=== PATIENT | female | born 1950 | race Caucasian/White ===

== ENCOUNTER → 2017-08-21 | Outpatient (CLI) | payer BC ==
[~2017-08-21] MED LIST: EFF50 PO; FRRG27 PO; LISI40TA PO; MEDLIST; SIMV20TA2 PO; [UNRECOGNIZED DRUG - OTHER]
--- NOTE | 2017-08-21 15:31 | MAMMOGRAPHY REPORT ---
UNILATERAL RIGHT DIGITAL DIAGNOSTIC MAMMOGRAM: 08/21/2017 CLINICAL HISTORY: Callback from screening mammogram for right breast calcifications. TECHNIQUE: Spot magnification right cc and ML views were obtained. COMPARISON: Comparison is made to exams dated: 08/12/2017 mammogram, 08/09/2016 mammogram, 07/20/2015 mammogram, 07/19/2014 mammogram, 07/14/2013 mammogram, and 07/13/2012 mammogram - [facility]. BREAST COMPOSITION: There are scattered areas of fibroglandular density in the right breast. FINDINGS: Spot magnification views of the right breast demonstrate 3-4 adjacent punctate benign appe aring calcifications in the right lateral breast on the cc view which are not grouped on the ML view. The calcifications appear similar to the 2016 exam and are considered benign given the stability an d benign morphology. No suspicious cluster of microcalcifications is seen on the additional views. IMPRESSION: ACR BI-RADS CATEGORY 2: BENIGN Three to four adjacent punctate benign appearing calcifications in the right lateral breast appear si milar to prior 2016 exam and are considered benign given the morphology and stability. There is no m ammographic evidence of malignancy. A 1 year screening mammogram is recommended. The patient has bee n verbally notified of the results. Approximately 10% of breast cancers are not detected with mammography. A negative mammographic report should not delay biopsy if a clinically suggestive mass is present. Mellissa Boss M.D. /:08/21/2017 10:01:12 [employer]: Akanksha SIN(Dominic)(M), [facility] letter sent: Normal 1/2 BI-RADS Code: ACR BI-RADS Category 2: Benign
== END | disposition home or self-care (01) ==
LOC: C.MAMM 09:35
PROVIDERS: ATTEND Family Medicine
DX: R92.1 Mammographic calcification found on diagnostic imaging of breast (principal)

== ENCOUNTER → 2017-10-28 | Outpatient (CLI) | payer BC | END | disposition home or self-care (01) | LOC: C.MAMM 12:34 | PROVIDERS: ATTEND Nurse Practitioner | DX: M81.0 Age-related osteoporosis without current pathological fracture (principal) ==

== ENCOUNTER 2023-10-13 12:49 | Inpatient (IN) ==
[2023-10-13] MEDS ORDERED: ONDANSETRON INJ 2 MG/ML 2 ML VIAL IV STA (13:40)
[2023-10-13] MEDS ORDERED: KETOROLAC TROMETHAMINE 15 MG/ML VIAL IV STA (13:40)
[2023-10-13] MEDS ORDERED: SODIUM CHLORIDE 0.9% 1,000 ML IV STA (13:40)
--- NOTE | 2023-10-13 13:40 | ED Triage Note ---
Date of Service October 13, 2023 Provider in Triage Author: Barbara Alfonso History of Present Illness This patient was briefly evaluated while in triage. An abbreviated physical exam was performed. This patient is a 73-year-old Female who presents to the ED for evaluation of right flank pain that radiates to the front of her abdomen that started at 6:45 am this morning. The pain is constant, but episodes of more severe pain. She thinks she might have a kidney stone. No previous kidney stones. Denies chest pain or SOB. No nausea, vomiting, or urinary symptoms. Physical Exam GENERAL: Non-toxic and in no acute distress. HEENT: Pupils equal. No obvious scleral icterus. HEART: Regular rate and rhythm. LUNGS: Clear to auscultation. No accessory muscle use. ABDOMEN: Soft, mild right flank and right sided abdominal pain. No CVA tenderness. No guarding or rigidity. NEURO: Alert and oriented. No obvious neurological deficits on quick neuro exam. Initial orders for labs and / or imaging were placed and patient was placed in the waiting area until a bed is available. Please see further documentation for the full ED course.
--- NOTE | 2023-10-13 14:34 | XRay Report ---
SINGLE VIEW CHEST CLINICAL HISTORY: Generalized abdominal pain FINDINGS: A PA chest radiograph is obtained. No prior studies are available for comparison at the rayray e of dictation. A hiatal hernia is noted. The cardiomediastinal silhouette is unremarkable. There is mild elevation of the right hemidiaphragm. The lungs and pleural spaces are clear. No pneumothorax is seen. The skeletal structures are osteopenic. Bony thorax is grossly intact. IMPRESSION: 1. No active disease in the chest. 2. Hiatal hernia. ACT 112: Negative or not required by law. Electronically signed by: Domingo Chin M.D. 10/13/2023 2:33 PM
[2023-10-13 15:38] LABS: Appearance Urine Turbid (Clear); Bacteria Urine Automated 4+ (Negative); Bilirubin Urine Negative (Negative); Blood Urine Trace (Negative); Cast Urine Automated 0 /lpf (0-5); Color Urine Dark Yellow; Glucose Urine UA Negative (Negative); Ketones Urine 2+ (Negative); Leukocyte Esterase Urine 3+ (Negative); Nitrite Urine Positive (Negative); Protein Urine 1+ (Negative); RBC Urine Automated 0-4 /hpf (0-4); Specific Gravity Urine 1.022 (1.000-1.030); Urobilinogen Urine Negative (Negative); WBC Urine Automated >30 /hpf (0-5)
[2023-10-13 15:48] LABS: Hematocrit (blood only) 42.6 % (37.0-47.0); Hemoglobin 14.9 g/dl (12.0-16.0); Mean Corpuscular Hemoglobin 31.4 pg (25.0-34.0); Mean Corpuscular Volume 89.7 fL (80.0-100.0); Mean Platelet Volume 10.4 fL (9.4-12.4); Platelet Count 267 K/uL (130-400); RDW Standard Deviation 42.5 fL (36.4-46.3); Red Blood Count 4.75 M/uL (4.20-5.40); White Blood Count 12.32 K/ul (4.8-10.8)
[2023-10-13 15:54] LABS: Albumin Globulin Ratio 1.5 (0.9-2); Albumin Level 4.6 gm/dl (3.4-5.0); BUN Creatinine Ratio 16.1 (10-20); Bilirubin,Total 0.9 mg/dl (0.2-1.0); Calcium 10.4 mg/dl (8.6-10.3); Creatinine Clr Calc Pharmacy 44.1 ml/min; Est GFR (African American) 56.8 ml/min; Globulin 3.1 gm/dl (2.5-4.0); Potassium 3.6 mmol/L (3.5-5.1); Total Protein 7.7 gm/dl (6.0-8.3)
[2023-10-13 16:01] LABS: Troponin I High Sensitivity 35.3 pg/ml (0-14)
--- NOTE | 2023-10-13 16:08 | Emergency Department Note ---
Impression & Plan Emphysematous pyelitis, Obstruction of right ureteropelvic junction due to stone, Hydronephrosis, Lactic acidosis, SIRS (systemic inflammatory response syndrome), Elevated troponin ED Provider Note CHIEF COMPLAINT: Right flank pain HISTORY OF PRESENTING ILLNESS: This 73-year-old female patient presents to the emergency department with her daughter for evaluation of right flank pain radiating around to the right abdomen that started abruptly at 6:45 am this morning. Also having nausea and vomiting, but no diarrhea. She is concerned for a kidney stone, but does not have a history of kidney stones. Denies any fevers. Denies any urinary symptoms. Denies any problems with her bowel movements. She rates her discomfort as 10/10. She denies any chest pain or SOB. No previous history of heart problems. Took Tylenol and ibuprofen at home as well as AZO without improvement of her symptoms. She felt fine yesterday and the symptoms came on abruptly. The patient had 1 glass of water at noon, but had not had anything to eat today. REVIEW OF SYSTEMS: See HPI for pertinent positives and pertinent negatives. ALLERGIES: NKDA MEDICATIONS: Effexor, HCTZ, Statin, Lisinopril, Fish oil, Calcium supplement, MV PAST MEDICAL HISTORY: HTN, high cholesterol, Anxiety PHYSICAL EXAM: VITALS: Vitals are noted on the nurse's note and reviewed by myself. GENERAL: Non toxic, no acute distress, non-diaphoretic. SKIN: Capillary refill <2 sec. EYES: PERRLA. EOMI. Conjunctivae without injection, sclerae without icterus. NOSE: Patent without discharge. MOUTH: Mucous membranes moist. Uvula midline. Airway patent. NECK: Supple without nuchal rigidity. HEART: Regular rate and rhythm without murmurs gallops or rubs. LUNGS: Clear to auscultation bilaterally without wheezes, rales or rhonchi. No retractions or accessory muscle use. ABDOMEN: Positive bowel sounds x 4. Normal tympanic percussion. Soft, tender to palpation in the right flank and around to the right side of the abdomen. No masses or organomegaly. Rogers sign negative. No CVA tenderness. No guarding or rebound tenderness. MUSCULOSKELETAL: No gross musculoskeletal defects. NEURO: Patient was alert and oriented. No focal neurological deficits. DIFFERENTIAL DIAGNOSIS: Differential diagnosis includes hepatitis, pancreatitis, cholecystitis, cholelithiasis, appendicitis, kidney stone, pyelonephritis, UTI, gastritis, gastroenteritis, mesenteric adenitis, obstruction, constipation, hernia, abdominal abscess, perforation, diverticulitis, IBD, ischemic colitis, abdominal aortic aneurysm, , ectopic , ovarian cyst, ovarian torsion, acute salpingitis, or others. ED COURSE AND MEDICAL DECISION MAKING: MONITOR: Continuous cardiac monitor technician: Order was placed for continuous cardiac monitor technician. Patient was placed on the cardiac monitor technician and continuous pulse ox. Patient was noted to be in normal sinus rhythm at an initial rate of 90 bpm per my interpretation. EKG: EKG was interpreted by myself as normal sinus rhythm at 100 bpm with poor R wave progression to suggest possible lead placement versus LVH versus anterior PR without previous EKGs available. This was reviewed by Dr. Ford as well and there are no acute ST or T wave changes at this time. Repeat EKG was interpreted by myself and shows normal sinus rhythm at [address] and T wave changes, but no acute ST or T wave changes and the previous abnormalities are no longer present. The QT interval has lengthened somewhat. MEDICATIONS GIVEN: 2 L normal saline solution bolus. Toradol 10 mg IV, Zofran 4 mg IV, Tylenol 1000 mg IV, Rocephin 2 g IV. INTERPRETATION OF LABS: I interpreted the labs with full lab results as below in the lab section of this note. White blood cell count elevated at 12.32. Hemoglobin normal at 14.9. Platelet count normal at 267. Anion gap elevated at 13. Glucose elevated at 157. CMP otherwise without significant abnormalities. Lipase was normal. High-sensitivity troponin was elevated at 35.3 with repeat high-sensitivity troponin improved to 6.4. Lactate was elevated at 3.3 with repeat lactate improved to 2.4. Urinalysis with 1+ protein, 2+ ketones, trace blood, positive nitrites, 3+ leukocytes, greater than 30 white blood cells, 10- 20 epithelial cells, and 4+ bacteria consistent with infection. Urine culture is pending. Blood cultures are pending. INTERPRETATION OF IMAGING: Imaging studies were interpreted by myself and read by radiology as per the imaging section of this note. Chest x-ray showed a hiatal hernia, but no acute cardiopulmonary etiology. CT scan of the abdomen and pelvis showed a 7 mm obstructing stone within the right ureteral pelvic junction resulting in moderate right hydronephrosis. There is a small amount of gas within the right renal collecting system and proximal right ureter. There is also gas located within the bladder lumen. This could be due to prior instrumentation/catheterization, but underlying infection in the setting of an emphysematous pyelitis/pyelonephritis is a consideration. Right lower lobe pulmonary nodules with the largest measuring 8 mm. CONSULTATIONS: Dr. Vasquez of urology, on-call hospitalist MDM SUMMARY: The patient was seen during a time of extreme volume and extreme acuity. Nursing triage protocols were initiated with IV lock, labs, and/or imaging studies conducted by protocol in the triage area. The patient was initially evaluated in a triage room and then re-examined once they were taken back to an exam room. The patient started with right flank pain suddenly at 6:45 AM this morning. Also having some nausea and an episode of vomiting. Denies any fevers or urinary symptoms. Denies chest pain or shortness of breath. Blood work showed an elevated white blood cell count, elevated anion gap, elevated lactate, and elevated troponin. Urinalysis was consistent with infection with urine culture pending. EKG's x 2 were not consistent with STEMI and repeat high-sensitivity troponin normalized. I suspect the elevated troponin was secondary to ischemic demand from her infection. The patient's CT scan showed a 7 mm obstructing stone within the right ureteral pelvic junction resulting in moderate right hydronephrosis with a small amount of gas within the right renal collecting system, proximal right ureter, and within the bladder lumen. The patient's workup is consistent with an infected stone resulting in sepsis vs SIRS and elevated troponin likely from ischemic demand. The patient was initially given 1 L normal saline solution bolus, Toradol, Zofran, and IV Tylenol with improvement of her pain. Once the patient's lactate level was received and was elevated, she was given a second liter of normal saline solution bolus calculated by ideal body weight. Blood cultures were drawn and are pending. The patient was given Rocephin 2 g IV. I spoke with Dr. Vasquez of urology who recommended the patient be taken to the OR for definitive treatment of the infected stone due to the gas seen on the CT scan and concern for emphysematous pyelitis. The patient's vital signs actually remained relatively stable with some hypertension and mild tachycardia. The patient was afebrile at home and afebrile in the emergency department. The patient was well-appearing on exam and nontoxic in appearance. Please refer to Dr. Vasquez' dictation for further details. I also spoke with the on-call hospitalist who agreed to admit the patient for further management after surgical intervention. Please refer to their dictation for further details. I had a meaningful discussion about this patient with Dr. Ford who agrees with my assessment and the treatment plan. The patient's care was transferred to Dr. Vasquez and the hospitalist in stable condition. DIAGNOSIS: Emphysematous pyelitis SIRS Elevated troponin 7 mm obstructing stone resulting in hydronephrosis Past Med/Surg History Medical History (Updated 10/13/23 @ 23:18 by Barbara Alfonso PA-C) HLD (hyperlipidemia) HTN (hypertension) Social History Smoking Status: Former smoker Tobacco Type: Cigarettes Cigarettes Per Day: 20; Smoking End Date: 40 years ago; Second Hand Exposure: No; Do You Dip or Chew Tobacco: No; Tobacco Cessation Education Requested by Patient: No Hx Alcohol Use: No Hx Substance Use: No Preferred Language: Maltese Communication Ability: Effective Java [id number] Technical Lead Required: No Beliefs That Will Affect Care: None Current Living Situation: Alone Other Information That Helps Us Care for You: No Feels Safe at Home: Yes Safety Concerns: Feels Safe At This Time Assistive Devices: Glasses Allergies Allergies Allergy/AdvReac Type Severity Reaction Status Date / Time No Known Allergies Allergy Unverified 03/12/10 18:55 Home Meds Home Medications Medication Instructions Recorded Confirmed hydrochlorothiazide 12.5 mg capsule 12.5 mg PO DAILY 10/13/23 10/13/23 lisinopril 40 mg tablet 40 mg PO DAILY 10/13/23 10/13/23 rosuvastatin 20 mg tablet 20 mg PO DAILY 10/13/23 10/13/23 venlafaxine 75 mg capsule,extended 75 mg PO DAILY 10/13/23 10/13/23 release 24 hr Results & Data (ED) Vital Signs Vital Signs - 24 hr 10/13/23 13:34 10/13/23 16:55 10/13/23 17:00 Temperature 36 C L Temperature Source Temporal Artery Scan Pulse Rate 88 98 H 102 H Respiratory Rate 18 23 21 Respiratory Effort / Characteristics Non-Labored Respiratory Depth Normal Respiratory Pattern Regular Blood Pressure 145/86 H 151/81 H 165/86 H Blood Pressure Mean 105 104 112 Pulse Oximetry 96 98 98 Oxygen Delivery Method Room Air Room Air Room Air Sepsis Recent Fever Within 48 Hours No Sepsis New/Unexplained Change in Mental Status N/A Sepsis Action Taken by Nursing No Action Required 10/13/23 17:15 Temperature Temperature Source Pulse Rate 108 H Respiratory Rate Respiratory Effort / Characteristics Respiratory Depth Respiratory Pattern Blood Pressure Blood Pressure Mean Pulse Oximetry Oxygen Delivery Method Sepsis Recent Fever Within 48 Hours Sepsis New/Unexplained Change in Mental Status Sepsis Action Taken by Nursing Laboratory Data 10/13/23 13:14 10/13/23 13:14 Lab Results 10/13/23 10/13/23 Range/Units 13:14 16:56 WBC 12.32 H (4.8-10.8) K/ul RBC 4.75 (4.20-5.40) M/uL Hgb 14.9 (12.0-16.0) g/dl Hct 42.6 (37.0-47.0) % MCV 89.7 (80.0-100.0) fL MCH 31.4 (25.0-34.0) pg MCHC 35.0 (32.0-36.0) g/dL RDW Std Deviation 42.5 (36.4-46.3) fL RDW Coeff of Farzaneh 13.0 (11.5-14.5) % Plt Count 267 (130-400) K/uL MPV 10.4 (9.4-12.4) fL Immature Gran % (Auto) 0.7 % Neut % (Auto) 94.1 % Lymph % (Auto) 3.8 % [place]he % (Auto) 1.2 % Eos % (Auto) 0.0 % Baso % (Auto) 0.2 % Neut # (Auto) 11.58 H (1.40-6.50) K/uL Lymph # (Auto) 0.47 L (1.20-3.40) K/uL [place]he # (Auto) 0.15 (0.11-0.59) K/uL Eos # (Auto) 0.00 (0.00-0.50) K/uL Baso # (Auto) 0.03 (0.00-0.20) K/uL Immature Gran # (Auto) 0.09 (0.01-0.20) K/uL Toxic Vacuolation 1+ Sodium 138 (136-145) mmol/L Potassium 3.6 (3.5-5.1) mmol/L Chloride 101 (98-107) mmol/L Carbon Dioxide 24 (21-32) mmol/L Anion Gap 13 H (3-11) BUN 18 (6-23) mg/dl Creatinine 1.12 (0.6-1.2) mg/dl Est Cr Clr Drug Dosing 44.1 ml/min Est GFR ( Amer) 56.8 ml/min Est GFR (Non-Af Amer) 49.0 ml/min BUN/Creatinine Ratio 16.1 (10-20) Glucose 157 H (70-99(Fasting)) mg/dl Lactate 3.3 H* (0.4-2.0) mmol/L Calcium 10.4 H (8.6-10.3) mg/dl Total Bilirubin 0.9 (0.2-1.0) mg/dl AST 35 (13-39) U/L ALT 23 (7-52) U/L Alkaline Phosphatase 60 (34-104) U/L Troponin I High Sens 35.3 H 6.4 D (0-14) pg/ml Total Protein 7.7 (6.0-8.3) gm/dl Albumin 4.6 (3.4-5.0) gm/dl Globulin 3.1 (2.5-4.0) gm/dl Albumin/Globulin Ratio 1.5 (0.9-2) Lipase 25 (11-82) U/L Urine Color Dark Yellow Urine Appearance Turbid A (Clear) Urine pH 7.0 (4.5-7.5) Ur Specific [place] 1.022 (1.000-1.030) Urine Protein 1+ H (Negative) Urine Glucose (UA) Negative (Negative) Urine Ketones 2+ H (Negative) Urine Blood Trace H (Negative) Urine Nitrite Positive A (Negative) Urine Bilirubin Negative (Negative) Urine Urobilinogen Negative (Negative) Ur Leukocyte Esterase 3+ H (Negative) Urine WBC (Auto) >30 H (0-5) /hpf Urine RBC (Auto) 0-4 (0-4) /hpf U Hyaline Cast (Auto) 0 (0-5) /lpf U Epithel Cells (Auto) 10-20 H (0-5) /lpf Urine Bacteria (Auto) 4+ H (Negative) Administered Medications Parenteral Electrolytes (Plasma-Lyte A Ph 7.4) 1,000 mls @ 125 mls/hr IV .Q8H GIGI Stop: 11/12/23 20:59 Last Admin: 10/13/23 21:42 Dose: 125 mls/hr Documented By: CHARBEL Discontinued Medications Diatrizoate Meglumine (Diatrizoate Meglumine 30% 100ml Vial) 100 ml INSTIL ONCE ONE Stop: 10/13/23 18:01 Last Admin: 10/13/23 18:50 Dose: 13 ml Documented By: [id number] Sodium Chloride (Nss) 1,000 mls @ 999 mls/hr IV .Q1H1M STA Stop: 10/13/23 14:40 Last Infusion: 10/13/23 16:51 Dose: Infused Documented By: Admin: 10/13/23 15:10 Dose: 999 mls/hr Documented By: ISRA Acetaminophen (Ofirmev) 1,000 mg in 100 mls @ 400 mls/hr IV NOW STA Stop: 10/13/23 16:35 Last Infusion: 10/13/23 17:15 Dose: Infused Documented By: Admin: 10/13/23 17:00 Dose: 400 mls/hr Documented By: MUNIRA Ceftriaxone Sodium (Rocephin) 2,000 mg in 50 mls @ 100 mls/hr IV NOW STA Stop: 10/13/23 16:51 Last Infusion: 10/13/23 17:35 Dose: Infused Documented By: Admin: 10/13/23 17:00 Dose: 100 mls/hr Documented By: MUNIRA Sodium Chloride (Nss) 1,000 mls @ 999 mls/hr IV .Q1H1M ONE Stop: 10/13/23 18:34 Last Admin: 10/13/23 17:40 Dose: 999 mls/hr Documented By: MUNIRA Parenteral Electrolytes (Plasma-Lyte A Ph 7.4) 361 mls @ 999 mls/hr IV .Q22M ONE Stop: 10/13/23 21:06 Last Infusion: 10/13/23 21:42 Dose: Infused Documented By: Admin: 10/13/23 21:18 Dose: 999 mls/hr Documented By: CHARBEL Ketorolac Tromethamine (Ketorolac Tromethamine 15 Mg/Ml Vial) 10 mg IV NOW STA Stop: 10/13/23 13:41 Last Admin: 10/13/23 15:10 Dose: 10 mg Documented By: ISRA Ondansetron HCl (Ondansetron Inj 2 Mg/Ml 2 Ml Vial) 4 mg IV NOW STA Stop: 10/13/23 13:41 Last Admin: 10/13/23 15:10 Dose: 4 mg Documented By: ISRA Imaging Data Radiologist's Impression: Retrograde Pyelogram 10/13/23 00:00 INTRAOPERATIVE RADIOGRAPHS CLINICAL HISTORY: Right ureteral stent placement. Fluoro time: 12 seconds Ka,r: 3.67 mGy FINDINGS: 3 spot fluoroscopic views of the right abdomen are correlated with abdominal CT performed the same day 10/13/2023. The initial image shows contrast in the mildly dilated right renal collecting system. There are air bubbles in the right renal pelvis. The final 2 images show the proximal and distal ends of a right ureteral stent in appropriate position. IMPRESSION: Intraoperative images from a right ureteral stent placement procedure as above. Electronically signed by: Domingo Chin M.D. 10/13/2023 7:22 PM Abdomen/Pelvis CT 10/13/23 13:[address] WITHOUT CONTRAST CT DOSE: 1149.21 mGy.cm HISTORY: Right flank pain TECHNIQUE: Multiaxial CT images of the abdomen and pelvis were performed without contrast. A dose lowering technique was utilized adhering to the principles of ALARA. COMPARISON STUDY: None. FINDINGS: There is a 7 mm subpleural nodule along the right minor fissure on image 2. There is a 6 mm nodule within the base the right lower lobe on image 63. Mild interstitial thickening at the lung bases. There is a 4 mm right lower lobe nodule on image 39. There is an 8 mm nodule within the right lower lobe on image 7. No pneumoperitoneum. No pneumatosis. Moderate osteoarthritis within the right hip. Degenerative changes within the lumbar spine. There is a moderate hiatus hernia. The unenhanced liver, gallbladder, pancreas, spleen, adrenal glands, and left kidney are unremarkable. There is a 7 mm obstructing stone within the right ureteropelvic junction resulting in moderate right hydronephrosis. There is moderate right perinephric edema. There is a small amount of gas within the right renal collecting system and proximal ureter. There is also gas located within the bladder lumen. No bladder wall thickening. The uterus and bilateral adnexa are unremarkable. Normal caliber abdominal aorta. No retroperitoneal or pelvic lymphadenopathy. No pelvic free fluid. Suboptimal evaluation for bowel pathology due to the lack of intravenous and oral contrast. However, there is no definite bowel wall thickening or obstruction. Colonic diverticulosis. No evidence for acute diverticulitis. The appendix is not identified and reportedly to be surgically absent. IMPRESSION: 1. A 7 mm obstructing stone within the right ureteral pelvic junction resulting in moderate right hydronephrosis. 2. Small amount of gas within the right renal collecting system and proximal right ureter. This also gas located within the bladder lumen. This could be due to prior instrumentation/catheterization. Underlying infection in the setting of an emphysematous pyelitis/pyelonephritis is considered less likely but not entirely excluded. Recommend correlation with urinalysis. 3. Right lower lobe pulmonary nodules as described above with the largest measuring 8 mm. Please refer to below summary of Fleischner criteria recommendations for follow- up of incidental CT nodules (Quan Pinto, Guidelines for management of small pulmonary nodules detected on CT scans: A statement from the Fleischner Society, Radiology 237: [phone].) SOLID NODULES Solitary nodule size: <6 mm * Low risk patients: no follow-up needed * high risk patients: optional CT at 12 months Solitary nodule size: 6-8 mm * Low risk patients: follow-up at 6-12 months, then consider further follow-up at 18-24 months * high risk patients: initial follow-up CT at 6-12 months and then at 18-24 months if no change Solitary nodule size: >8 mm * either low or high risk patients - consider follow-up CT at 3 months, and/or CT-PET, and/or biopsy Multiple nodules size: <6 mm * Low risk patients: no routine follow-up * high risk patients: optional CT at 12 months Multiple nodules size: 6-8 mm * Low risk patients: follow-up at 3-6 months, then consider further follow-up at 18-24 months * high risk patients: follow-up at 3-6 months, then at 18-24 months if no change Multiple nodules size: >8 mm * Low risk patients: follow-up at 3-6 months, then consider further follow-up at 18-24 months * high risk patients: follow-up at 3-6 months, then at 18-24 months if no change Note: newly detected indeterminate nodule in persons 35 years of age or older. * Low risk patients: minimal or absent history of smoking and/or other known risk factors * high risk patients: history of smoking or of other known risk factors (e.g. first degree relative with lung cancer, or exposure to asbestos, radon, uranium) * if a nodule up to 8 mm is partly solid or is ground glass further follow-up is required after 24 months to exclude possible slow growing adenocarcinoma (LLOYD) SUBSOLID NODULES Solitary pure ground-glass nodule * nodule size <6 mm - no CT follow-up required * nodule size >=6 mm - follow-up CT at 6-12 months, then every 2 years until 5 years Solitary part-solid nodule * nodule size <6 mm - no CT follow-up required * nodule size >=6 mm - follow-up CT at 3-6 months. If unchanged, and solid component remains <6 mm, then annual follow-up for 5 years Multiple subsolid nodules * nodule size <6 mm - follow-up CT at 3-6 months, consider further follow-up at 2 and 4 years if stable * nodule size >=6 mm - follow-up CT at 3-6 months, subsequent management based on the most suspicious nodule(s) ACT 112: Positive. There are findings on this exam that require communication between the performing entity and the patient following Patient Test Result Information Act ([place] Act 112) guidelines. Electronically signed by: Grant Ruelas M.D. 10/13/2023 4:26 PM Chest X-Ray 10/13/23 13:40 SINGLE VIEW CHEST CLINICAL HISTORY: Generalized abdominal pain FINDINGS: A PA chest radiograph is obtained. No prior studies are available for comparison at the time of dictation. A hiatal hernia is noted. The cardiomediastinal silhouette is unremarkable. There is mild elevation of the right hemidiaphragm. The lungs and pleural spaces are clear. No pneumothorax is seen. The skeletal structures are osteopenic. Bony thorax is grossly intact. IMPRESSION: 1. No active disease in the chest. 2. Hiatal hernia. ACT 112: Negative or not required by law. Electronically signed by: Domingo Chin M.D. 10/13/2023 2:33 PM Discharge Plan Visit Data Chief Complaint: Flank Pain Stated Complaint: POSS KIDNEY STONE ED Provider: Benito Ford ED Midlevel Provider: Barbara Alfonso Discharge Problem: Emphysematous pyelitis, Obstruction of right ureteropelvic junction due to stone, Hydronephrosis, Lactic acidosis, SIRS (systemic inflammatory response syndrome), Elevated troponin Patient Disposition: Admitted As Inpatient Condition: Good Discharge Instructions Interventions: ED Discharge Assessment Last Done: 10/13/23 18:00 Discharge Problem: Hydronephrosis Qualifiers: Hydronephrosis type: unspecified Qualified Code(s): N13.30 - Unspecified hydronephrosis
[2023-10-13 16:09] LABS: Basophils # (auto) 0.03 K/uL (0.00-0.20); Basophils % (auto) 0.2 %; Immature Granulocytes # (auto) 0.09 K/uL (0.01-0.20); Immature Granulocytes % (auto) 0.7 %; Lymphocytes # (auto) 0.47 K/uL (1.20-3.40); Lymphocytes % (auto) 3.8 %; Monocytes # (auto) 0.15 K/uL (0.11-0.59); Monocytes % (auto) 1.2 %; Neutrophils # (auto) 11.58 K/uL (1.40-6.50); Neutrophils % (auto) 94.1 %; Toxic Vacuolation 1+
[2023-10-13] MEDS ORDERED: ACETAMINOPHEN 1,000 MG/100 ML VIAL IV STA (16:21)
[2023-10-13] MEDS ORDERED: cefTRIAXone SODIUM 2,000 MG/50 ML BAG IV STA (16:22)
--- NOTE | 2023-10-13 16:28 | CT Scan Report ---
ABDOMEN AND PELVIS CT WITHOUT CONTRAST CT DOSE: 1149.21 mGy.cm HISTORY: Right flank pain TECHNIQUE: Multiaxial CT images of the abdomen and pelvis were performed without contrast. A dose lo wering technique was utilized adhering to the principles of ALARA. COMPARISON STUDY: None. FINDINGS: There is a 7 mm subpleural nodule along the right minor fissure on image 2. There is a 6 mm nodule within the base the right lower lobe on image 63. Mild interstitial thickening at the lung ba ses. There is a 4 mm right lower lobe nodule on image 39. There is an 8 mm nodule within the right lo wer lobe on image 7. No pneumoperitoneum. No pneumatosis. 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 Degenerative changes within the lumbar spine. There is a moderate hiatus hernia. The unenhanced li horace, gallbladder, pancreas, spleen, adrenal glands, and left kidney are unremarkable. There is a 7 mm obstructing stone within the right ureteropelvic junction resulting in moderate right hydronephrosis . There is moderate right perinephric edema. There is a small amount of gas within the right renal co llecting system and proximal ureter. There is also gas located within the bladder lumen. No bladder w all thickening. The uterus and bilateral adnexa are unremarkable. Normal caliber abdominal aorta. No retroperitoneal or pelvic lymphadenopathy. No pelvic free fluid. Suboptimal evaluation for bowel path ology due to the lack of intravenous and oral contrast. However, there is no definite bowel wall thic kening or obstruction. Colonic diverticulosis. No evidence for acute diverticulitis. The appendix is not identified and reportedly to be surgically absent. IMPRESSION: 1. A 7 mm obstructing stone within the right ureteral pelvic junction resulting in moderate right hyd ronephrosis. 2. Small amount of gas within the right renal collecting system and proximal right ureter. This also gas located within the bladder lumen. This could be due to prior instrumentation/catheterization. Und erlying infection in the setting of an emphysematous pyelitis/pyelonephritis is considered less likel y but not entirely excluded. Recommend correlation with urinalysis. 3. Right lower lobe pulmonary nodules as described above with the largest measuring 8 mm. Please refer to below summary of Fleischner criteria recommendations for follow-up of incidental CT n odules Radha Pinto, Guidelines for management of small pulmonary nodules detected on CT scans: A sta tement from the Fleischner Society, Radiology 237: [phone].) SOLID NODULES Solitary nodule size: <6 mm * Low risk patients: no follow-up needed * high risk patients: optional CT at 12 months Solitary nodule size: 6-8 mm * Low risk patients: follow-up at 6-12 months, then consider further follow-up at 18-24 months * high risk patients: initial follow-up CT at 6-12 months and then at 18-24 months if no change Solitary nodule size: >8 mm * either low or high risk patients - consider follow-up CT at 3 months, and/or CT-PET, and/or biopsy Multiple nodules size: <6 mm * Low risk patients: no routine follow-up * high risk patients: optional CT at 12 months Multiple nodules size: 6-8 mm * Low risk patients: follow-up at 3-6 months, then consider further follow-up at 18-24 months * high risk patients: follow-up at 3-6 months, then at 18-24 months if no change Multiple nodules size: >8 mm * Low risk patients: follow-up at 3-6 months, then consider further follow-up at 18-24 months * high risk patients: follow-up at 3-6 months, then at 18-24 months if no change Note: newly detected indeterminate nodule in persons 35 years of age or older. * Low risk patients: minimal or absent history of smoking and/or other known risk factors * high risk patients: history of smoking or of other known risk factors (e.g. first degree relative with lung cancer, or exposure to asbestos, radon, uranium) * if a nodule up to 8 mm is partly solid or is ground glass further follow-up is required after 24 m onths to exclude possible slow growing adenocarcinoma (LLOYD) SUBSOLID NODULES Solitary pure ground-glass nodule * nodule size <6 mm - no CT follow-up required * nodule size >=6 mm - follow-up CT at 6-12 months, then every 2 years until 5 years Solitary part-solid nodule * nodule size <6 mm - no CT follow-up required * nodule size >=6 mm - follow-up CT at 3-6 months. If unchanged, and solid component remains <6 mm, then annual follow-up for 5 years Multiple subsolid nodules * nodule size <6 mm - follow-up CT at 3-6 months, consider further follow-up at 2 and 4 years if sta ble * nodule size >=6 mm - follow-up CT at 3-6 months, subsequent management based on the most suspiciou s nodule(s) ACT 112: Positive. There are findings on this exam that require communication between the performing entity and the patient following Patient Test Result Information Act ([place] Act 112) guidelines. Electronically signed by: Grant Ruelas M.D. 10/13/2023 4:26 PM
--- NOTE | 2023-10-13 16:33 | Emergency Department Note ---
ED Visit Note I was consulted in regards to the patient's presentation and plan of care by the Advanced Practice Provider. I engaged in a detailed/meaningful discussion with the Advanced Practice Provider in regards to this patient's workup and plan of care. Please see the Advanced Practice Provider's note for full details of the patient encounter. I agree with the assessment and plan of Barbara Alfonso PA-C. Benito Ford, DO Emergency Medicine .
--- NOTE | 2023-10-13 16:45 | Electrocardiogram Report ---
Test Reason : Blood Pressure : / mmHG Vent. Rate : 100 BPM Atrial Rate : 100 BPM P-R Int : 180 ms QRS Dur : 080 ms QT Int : 308 ms P-R-T Axes : 025 -25 000 degrees QTc Int : 397 ms Normal sinus rhythm Possible Old Inferior infarct Poor R wave progression, consider anterior LA vs. lead placement vs. LVH Abnormal ECG No previous ECGs available Confirmed by Eh Richardson ([id number]) on 10/13/2023 4:44:51 PM Referred By: Confirmed By:Eh Richardson
[2023-10-13] MEDS ORDERED: SODIUM CHLORIDE 0.9% 1,000 ML IV ONE (17:34)
[2023-10-13] MEDS ORDERED: PROPOFOL IV EMULSION 10 MG/ML 20 ML VIAL IV ONE (17:40)
[2023-10-13] MEDS ORDERED: ONDANSETRON INJ 2 MG/ML 2 ML VIAL ONE (17:41)
[2023-10-13] MEDS ORDERED: DEXAMETHASONE SOD INJ 4 MG/ML VIAL ONE (17:41)
[2023-10-13] MEDS ORDERED: LIDOCAINE 2% 2 ML VIAL/AMP(20MG/ML) INFIL ONE (17:41)
[2023-10-13] MEDS ORDERED: ATROPINE SULFATE 0.1 MG/ML 10ML SYR IV PRN (17:42)
[2023-10-13] MEDS ORDERED: fentaNYL citrate PF 100 MCG/2 ML VIAL IV PRN (17:42)
[2023-10-13] MEDS ORDERED: ONDANSETRON INJ 2 MG/ML 2 ML VIAL IV PRN (17:42)
[2023-10-13] MEDS ORDERED: ePHEDrine sulfate 50 MG/ML AMP IV PRN (17:42)
--- NOTE | 2023-10-13 17:43 | Anesthesiology Consultation ---
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 Surgery Operation Date: 10/13/23 18:15 Proposed Procedures p Cystoscopy, Left Ureteral Stent Placement(Left) - Emmanuel Vasquez DO Height/Weight Height: 5 ft 2 in Weight: 78.7 kg Allergies Allergy/AdvReac Type Severity Reaction Status Date / Time No Known Allergies Allergy Unverified 03/12/10 18:55 Medications Home Medications Medication Instructions Recorded Confirmed Last Taken hydrochlorothiazide 12.5 mg capsule 12.5 mg PO DAILY 10/13/23 10/13/23 Unknown lisinopril 40 mg tablet 40 mg PO DAILY 10/13/23 10/13/23 Unknown rosuvastatin 20 mg tablet 20 mg PO DAILY 10/13/23 10/13/23 Unknown venlafaxine 75 mg capsule,extended 75 mg PO DAILY 10/13/23 10/13/23 Unknown release 24 hr Active Medications Generic Name Dose Route Start Last Admin Trade Name Freq PRN Reason Stop Dose Admin Sodium Chloride 1,000 mls @ 999 mls/hr 10/13/23 17:34 10/13/23 17:40 Nss IV 10/13/23 18:34 999 mls/hr .Q1H1M ONE Administration Social History Smoking Status: Never smoker Physical Exam Vital Signs Last Vital Signs Temp 96.8 F L 10/13/23 13:34 Pulse 108 H 10/13/23 17:15 Resp 23 10/13/23 16:55 BP 151/81 H 10/13/23 16:55 Pulse Ox 98 10/13/23 16:55 O2 Del Method Room Air 10/13/23 16:55 Testing Laboratory Results 10/13/23 13:14 10/13/23 13:14 Urine Color Dark Yellow 10/13/23 13:14 Urine Appearance Turbid (Clear) A 10/13/23 13:14 Urine pH 7.0 (4.5-7.5) 10/13/23 13:14 Ur Specific [place] 1.022 (1.000-1.030) 10/13/23 13:14 Urine Protein 1+ (Negative) H 10/13/23 13:14 Urine Glucose (UA) Negative (Negative) 10/13/23 13:14 Urine Ketones 2+ (Negative) H 10/13/23 13:14 Urine Nitrite Positive (Negative) A 10/13/23 13:14 Ur Leukocyte Esterase 3+ (Negative) H 10/13/23 13:14 Urine WBC (Auto) >30 /hpf (0-5) H 10/13/23 13:14 Urine RBC (Auto) 0-4 /hpf (0-4) 10/13/23 13:14 U Hyaline Cast (Auto) 0 /lpf (0-5) 10/13/23 13:14 U Epithel Cells (Auto) 10-20 /lpf (0-5) H 10/13/23 13:14 Urine Bacteria (Auto) 4+ (Negative) H 10/13/23 13:14 Electrocardiogram Date: 10/13/23 Normal sinus rhythm, rate 100 bpm Possible Old Inferior infarct Poor R wave progression, consider anterior LA vs. lead placement vs. LVH Abnormal ECG No previous ECGs available Confirmed by Eh Richardson ([id number]) on 10/13/2023 4:44:51 PM Chest X-Ray Date: 10/13/23 IMPRESSION: 1. No active disease in the chest. 2. Hiatal hernia.
[2023-10-13] MEDS ORDERED: MIDAZOLAM HCL 1 MG/ML 2ML VIAL ONE (17:46)
[2023-10-13] MEDS ORDERED: fentaNYL citrate PF 100 MCG/2 ML VIAL ONE (17:46)
[2023-10-13] MEDS ORDERED: ePHEDrine sulfate 50 MG/ML AMP ONE (17:48)
[2023-10-13] MEDS ORDERED: PHENYLEPHRINE HCL 10 MG/ML VIAL ONE (17:48)
[2023-10-13] MEDS ORDERED: HYDROmorphone INJ 1 MG/ML SYRINGE IV PRN (17:54)
[2023-10-13] MEDS ORDERED: HYDROmorphone INJ 0.5 MG/0.5 ML SYR IV PRN (17:54)
[2023-10-13] MEDS ORDERED: DIATRIZOATE MEGLUMINE 30% 100ML VIAL INSTIL ONE (18:00)
--- NOTE | 2023-10-13 18:01 | History & Physical Report ---
Date of Service October 13, 2023 Assessment & Plan (1) Emphysematous pyelitis: Plan: Infected nephrolithiasis, complicated UTI Leukocytosis of 12, lactate 3.3. High sensitive troponin 35.3 without chest pain and no prior history of ischemia. UA with 4+ bacteria, leukocyte esterase, nitrates infected appearing CTA/P: 7 mm obstructing stone at right UPJ with right hydronephrosis and small amount of proximal right ureteral gas which may be due to prior to menta tion but from which emphysematous infection is not excluded Received NSS 2 L while in the ER, Rocephin, and 10 mg of Toradol No associated LIZ - Patient meets SIRS criteria by heart rate, respiratory rate, leukocytosis unidentified source with lactic acidosis. 2 L crystalloid ordered bolus while in the ER. Will complete 30 cc/kg of body weight resuscitation with 361 cc of Plasma-Lyte bolus and then switch to maintenance. No history of heart failure. Empiric antibiotics started with Rocephin, blood cultures and urine cultures are pending - Pt nontoxic appearing on reassessment after first liter of fluid, pain and clinical appearance are improving, pending transport to OR. Repeat labs are pending. - Admit to telemetry for monitoring post procedure (2) Pulmonary nodule: Plan: Pulmonary nodules Right lower lobe pulmonary nodules with largest measuring up to 8 mm. These will require follow-up reimaging in 6 to 12 months. Refer to pulmonary nodule clinic (3) Obstruction of right ureteropelvic junction due to stone: (4) Hydronephrosis: (5) HLD (hyperlipidemia): Plan: Hyperlipidemia Continue statin (6) HTN (hypertension): Plan: Hypertension Resume lisinopril/chlorothiazide in a.m. if renal function is stable Plan DVT prophylaxis: Heparin Diet: N.p.o. CODE STATUS: Full code Disposition: Medical telemetry for sepsis History of Present Illness Primary Care Provider: Roberto Alvarado MD Manjit is 73-year-old female with a past medical history of hyperlipidemia, hypertension who presents to the ER for right flank pain which began morning of admission with nausea and vomiting. No prior history of kidney stones, severe 10/10 pain on admission and no improvement with Tylenol/ibuprofen/Azo. Seen at the bedside prior to being taken to OR. She reports that she woke up this morning with flank pain on the right side 10/10, now greatly improved following initial ER treatment. She never had this pain before. No vomiting. No hematochezia or melena. She reports she has no history of heart disease, heart failure, lung disease. No history of DVT/PE or blood clots. She took her morning medications this morning.Takes effexor, hctz, lisinopril, rosuvastatin (just started for cholesterol). No history of kidney failure or kidney disease. No medication allergies. Walks and gardens regularly. No chest pain/exertional angina. No exertional dyspnea. Medical History: Reviewed Medications: Reviewed Surgical History: Reviewed Family history: Reviewed Allergies: Reviewed Social History: No tobacco or etoh Code Status: Surrogate would be son Lebron [phone]. Full code Allergies Allergy/AdvReac Type Severity Reaction Status Date / Time No Known Allergies Allergy Unverified 03/12/10 18:55 Home Medications Medication Instructions Recorded Confirmed Type hydrochlorothiazide 12.5 mg capsule 12.5 mg PO DAILY 10/13/23 10/13/23 History lisinopril 40 mg tablet 40 mg PO DAILY 10/13/23 10/13/23 History rosuvastatin 20 mg tablet 20 mg PO DAILY 10/13/23 10/13/23 History venlafaxine 75 mg capsule,extended 75 mg PO DAILY 10/13/23 10/13/23 History release 24 hr Past Med/Surg History Medical History (Updated 10/13/23 @ 19:48 by Ozzie Dupree MD) HLD (hyperlipidemia) HTN (hypertension) Social History Smoking Status: Never smoker Feels Safe at Home: Yes Physical Exam Physical Exam: General: A&Ox3. NAD. Cooperative. Nontoxic appearing HEENT: Atraumatic, normocephalic. Vision/hearing intact Pulm: CTAB A&P. -wheezes, -rales, -rhonchi. Symmetrical chest rise. No increased work of breathing. No respiratory distress. Cardiac: Regular, tachycardic, -mrg. Radial pulses intact and symmetrical. Abdominal: Mild R flank discomfort on reassessment, improved from prior. No rebound/guarding Results & Data Results & Data Vital Signs (Past 12 Hours) Vital Signs Temp Pulse Resp BP Pulse Ox O2 Del Method 10/13/23 17:15 108 H 10/13/23 16:55 98 H 23 151/81 H 98 Room Air 10/13/23 13:34 36 C L 88 18 145/86 H 96 Room Air PG Care Time/CCT Total # of Minutes Spent Total Time Spent with Patient: Total time spent is greater than 50% in coordination of care (as documented) at patient's floor/unit and/or counseling patient: Coding Level of Care Code 76159 INT INP/OBS CARE 375MIN Diagnoses Emphysematous pyelitis N12 Pulmonary nodule R91.1 Obstruction of right ureteropelvic junction due to stone N20.1 Hydronephrosis N13.30 HLD (hyperlipidemia) E78.5 HTN (hypertension) I10
--- NOTE | 2023-10-13 18:12 | Urology Consultation ---
Date of Consultation October 13, 2023 Assessment & Plan (1) Emphysematous pyelitis: (2) Obstruction of right ureteropelvic junction due to stone: (3) Hydronephrosis: (4) Lactic acidosis: (5) SIRS (systemic inflammatory response syndrome): Plan Patient presented the ER with acute right flank pain going into the groin coming in waves and severe episodes. Patient was having poor oral intake was having nausea and ill feelings. Has had previous UTIs no major episodes of Naldo. Does not have considerable history of stone disease. No major family history. Patient has blood pressure issues at baseline has high cholesterol. Patient otherwise has no major medical issues. Histories were all reviewed patient's complicated medical and surgical history was reviewed and summarized above. Imaging was reviewed and interpreted by myself. Multiple areas of gas within the collecting system on the right with obstructing stone at the UPJ. Patient had possible gas in the bladder as well with possible gas along the ureter. Concern for obstructing stone with anaerobic infection causing emphysematous pyelitis. Patient does not appear toxic and is not having any delirium or confusion. White count is elevated 12.32. Creatinine is 1.12. Patient's hemoglobin was 14.9. All labs were reviewed pertinent values in the HPI or plan section. Patient has mild low temperature 36. Did not have considerable fever while in the ER. Is satting 90% on room air. Has been tachycardic while in the ER. Most recent pulse was 108. Pulse has been mildly elevated at 165/86. No major episodes of hypotension. Extensively reviewed options with patient. Discussed obstruction. Discussed concerns related to ascending infection developing into pyelonephritis. Discussed concerns with gas formation in the collecting system suspicious for anaerobic infection. Patient was given broad-spectrum antibiotics while in the ER with coverage with Rocephin. Discussed possible need for further utilization of antibiotics. Will likely need IV antibiotics with broad-spectrum coverage likely for 1 to 2 days until full culture results are available. Will plan to aspirate urine from right kidney to send for culture. May need to have catheter in place afterwards. Extensively reviewed need for urgent/emergent drainage of obstructed stone with pyelitis. Concern for possible development of sepsis. Patient has signs of systemic inflammatory response with tachycardia elevated white count and lactic acidosis. Patient has undergone large-volume resuscitation with IV fluids by the ER. Will be getting admitted to the hospitalist team and will likely need to be monitored closely for worsening symptoms development or development of bacteremia or sepsis. Extensively reviewed options. Risks and benefits discussed at length for procedure. These include bleeding, infection, injury to surrounding tissues or organs, and risks associated with anesthesia. Patient states understanding and agrees to proceed. Will sign consent and proceed with urgent procedure. Plan for Cystoscopy with right stent placement. History of Present Illness History of Present Illness Urgent consultation for infected patient with UTI/Pyelo, discomfort, and ill feelings. Patient developed sudden onset of pain into flank going down and radiating into groin and back in waves comes and goes. Can be severe at times. Discussed and reviewed patient's personal medical, surgical, social, and family history for any history of issues, infections, and disease. Also, discussed patient's medical/surgery history especially related to any history of urinary issues or stone disease. Patient is undergoing urgent management with fluid resuscitation for acute illness and is being admitted to the hospitalist team for broad-spectrum IV antibiotic. Pain became severe developed significant nausea. Has not had major intake orally since this morning. Did have a few sips of water around noon. Patient has not had major febrile issues while in the ER. Is having some tachycardia and had a lactic acidosis. CT imaging shows an obstructing stone on the right with emphysematous pyelitis Allergies Allergy/AdvReac Type Severity Reaction Status Date / Time No Known Allergies Allergy Unverified 03/12/10 18:55 Home Medications Medication Instructions Recorded Confirmed Type hydrochlorothiazide 12.5 mg capsule 12.5 mg PO DAILY 10/13/23 10/13/23 History lisinopril 40 mg tablet 40 mg PO DAILY 10/13/23 10/13/23 History rosuvastatin 20 mg tablet 20 mg PO DAILY 10/13/23 10/13/23 History venlafaxine 75 mg capsule,extended 75 mg PO DAILY 10/13/23 10/13/23 History release 24 hr Patient History Social History Smoking Status: Never smoker Feels Safe at Home: Yes Review of Systems Review of Systems: All systems reviewed & are unremarkable except as noted in HPI & below Physical Exam Physical Exam: General: Alert and orient x 3 no acute distress. HEENT: Normocephalic Atraumatic. Inspection normal. Cranial Nerves 2-12 Grossly intact. Nares are clear. Neck is supple. Normal inspection of face. Normal inspection of neck. Neurologic: No deficits on inspection. Baseline for motor function and sensory. Psychologic: Normal psych Respiratory: Not on labored. No use of accessory muscles. No severe dyspnea. Cardiovascular: tachycardia Skin: Trainer and Dry. No rashes or visible lesions. Extremities: Moving without issues. No motor deficits on inspection Lymphatics: No severe edema Abdomen: Mildly distended. No rebound or guarding. Moderate right suprapubic/flank tenderness Results & Data Vital Signs (Past 12 Hours) Vital Signs Temp Pulse Resp BP Pulse Ox O2 Del Method 10/13/23 17:15 108 H 10/13/23 17:00 102 H 21 165/86 H 98 Room Air 10/13/23 16:55 98 H 23 151/81 H 98 Room Air 10/13/23 13:34 36 C L 88 18 145/86 H 96 Room Air PG Care Time/CCT Total # of Minutes Spent Total Time Spent with Patient: Total time spent is greater than 50% in coordination of care (as documented) at patient's floor/unit and/or counseling patient: Coding Level of Care Code 08225 OFFICE CONSULT LVL Diagnoses Emphysematous pyelitis N12 Obstruction of right ureteropelvic junction due to stone N20.1 Hydronephrosis N13.30 Lactic acidosis E87.20 SIRS (systemic inflammatory response syndrome) R65.10
--- NOTE | 2023-10-13 18:58 | Operative Report ---
PG Post Operative Report Pre & Post Diagnosis Operation Date: 10/13/23 18:15 Pre-Op Diagnosis: 1. Emphysematous pyelitis 2. Obstruction of right ureteropelvic junction due to stone 3. Hydronephrosis 4. Lactic acidosis 5. SIRS (systemic inflammatory response syndrome) Post-Op Diagnosis: 1. Emphysematous pyelitis 2. Obstruction of right ureteropelvic junction due to stone 3. Hydronephrosis 4. Lactic acidosis 5. SIRS (systemic inflammatory response syndrome) I identified the patient and participated in the time-out.: Yes Procedure Operation Date: 10/13/23 18:15 Actual Procedures p Cystoscopy, Retrograde Pyelogram, Aspiration of urine right renal pelvis, and Ureteral Stent Placement, Right(Right) - Emmanuel Vasquez DO Surgeon Emmanuel Vasquez, CAMRON, DO Java Lead Developer None Estimated Blood Loss 1 Findings Consistent with Post-Op Diagnosis Stent placed in good position. Dark urine from right kidney Specimens Urine for culture Drains 6 Fr x 24 Right Anesthesia Type MAC Complications none Disposition Disposition: Recovery Room Indications Patient with obstruction. Risks and benefits discussed at length. Description of Procedure Patient was consented and brought back to the operating room. Patient was placed under anesthesia in the supine position and moved to the dorsal lithotomy position. Patient was prepped and draped in the regular sterile fashion. A time out was completed. A 30degree Cystoscope was placed into the bladder and the entire bladder was examined. The UO's were identified. The UO was cannulized with a catheter and advanced to the renal pelvis. Urine was aspirated from the pelvis and a retrograde pyelogram was completed. A wire was then placed. With the wire in place, a 6 Fr Double J stent was placed. It was confirmed with fluoroscopy. With the stent in place, the bladder was emptied. The scope was removed. The patient was cleaned, aroused from anesthesia, and transferred to the pacu in stable condition having tolerated the procedure well with no complications. I was present and participated in all aspects of the procedure. The patient will be monitored in the PACU until transferred. Plan to monitor with broad spectrum antibiotics for pyelitis. Plan for likely stone treatment in 1-2 weeks after resolution of infection. I attest to the content of the Intraoperative Record and any orders documented therein. Any exceptions are noted below.
--- NOTE | 2023-10-13 19:13 | Anesthesiology Progress Note ---
Date of Service October 13, 2023 Anesthesia Post Procedure Vital Signs Vital Signs: Temp Pulse Pulse Resp BP BP Pulse Ox 10/13/23 19:10 98 H 18 119/75 99 10/13/23 19:00 98.2 F 98 H 16 126/71 94 10/13/23 17:15 108 H 10/13/23 17:00 102 H 21 165/86 H 98 10/13/23 16:55 98 H 23 151/81 H 98 10/13/23 13:34 96.8 F L 88 18 145/86 H 96 O2 Del Method O2 Flow Rate 10/13/23 19:10 Oxymask 4 10/13/23 19:00 Oxymask 6 10/13/23 17:15 10/13/23 17:00 Room Air 10/13/23 16:55 Room Air 10/13/23 13:34 Room Air Transfer of Care Handoff Completed per policy Notes Mental Status: alert / awake / arousable and participated in evaluation Patient Amnestic to Procedure: Yes Nausea / Vomiting: adequately controlled Pain: adequately controlled Airway Patency, RR, SpO2: stable & adequate BP & HR: stable & adequate Hydration State: stable & adequate Anesthetic Complications: no major complications apparent and Pt Satisfied with anesthetic care
--- NOTE | 2023-10-13 19:23 | Fluoroscopy Report ---
INTRAOPERATIVE RADIOGRAPHS CLINICAL HISTORY: Right ureteral stent placement. Fluoro time: 12 seconds Ka,r: 3.67 mGy FINDINGS: 3 spot fluoroscopic views of the right abdomen are correlated with abdominal CT performed t he same day 10/13/2023. The initial image shows contrast in the mildly dilated right renal collecting s ystem. There are air bubbles in the right renal pelvis. The final 2 images show the proximal and dist al ends of a right ureteral stent in appropriate position. IMPRESSION: Intraoperative images from a right ureteral stent placement procedure as above. Electronically signed by: Domingo Chin M.D. 10/13/2023 7:22 PM
[2023-10-13] MEDS ORDERED: MULTIPLE ELECTROLYTES IV ONE (20:45)
[2023-10-13] MEDS: PLASMA-LYTE A 1,000 ML IV SCH (21:42)
[2023-10-14 05:24] LABS: A calco-baum cmplx NotReported Not Detected (NotDetected); Bact fragilis Not Reported Not Detected (NotDetected); Blood Culture Id Panel See PCR Comment (NotDetected); C auris Not Reported Not Detected (NotDetected); CTX-M Resistant Gene Not Detected (NotDetected); Calbicans Not Reported Not Detected (NotDetected); Candida glabrata Not Reported Not Detected (NotDetected); Candida krusei Not Reported Not Detected (NotDetected); Cneoformans/gatti Not Reported Not Detected (NotDetected); Cparapsilosis Not Reported Not Detected (NotDetected); E cloacae compx Not Reported Not Detected (NotDetected); Efaecalis Not Reported Not Detected (NotDetected); Efaecium Not Reported Not Detected (NotDetected); Enterobacterales DETECTED (NotDetected); Enterobacterales Not Reported DETECTED (NotDetected); Escherichia coli Not Reported DETECTED (NotDetected); H influenzae Not Reported Not Detected (NotDetected); IMP Resistant Gene Not Detected (NotDetected); K aerogenes Not Reported Not Detected (NotDetected); KPC Resistant Gene Not Detected (NotDetected); Koxytoca Not Reported Not Detected (NotDetected); Kpneumoniae grp Not Reported Not Detected (NotDetected); Lmonocyt Not Reported Not Detected (NotDetected); N meningitidis Not Reported Not Detected (NotDetected); NDM Resistant Gene Not Detected (NotDetected); OXA 48 Like Resistant Gene Not Detected (NotDetected); P aeruginosa Not Reported Not Detected (NotDetected); Proteus spp Not Reported Not Detected (NotDetected); Salmonella spp Not Reported Not Detected (NotDetected); Smarcescens Not Reported Not Detected (NotDetected); Staph lugdunensis Not Reported Not Detected (NotDetected); Staph spp. Not Reported Not Detected (NotDetected); Staphaureus Not Reported Not Detected (NotDetected); Staphepi Not Reported Not Detected (NotDetected); Stenmaltophilia Not Reported Not Detected (NotDetected); Strep agal(GrpB) Not Reported Not Detected (NotDetected); Strep pneum Not Reported Not Detected (NotDetected); Strep pyog (GrpA) Not Reported Not Detected (NotDetected); Strep spp Not Reported Not Detected (NotDetected); VIM Resistant Gene Not Detected (NotDetected); mcr-1 Colistin Resistant Gene Not Detected (NotDetected)
[2023-10-14] MEDS: PLASMA-LYTE A 1,000 ML IV SCH ×3 (05:53→22:04)
[2023-10-14 07:15] LABS: Calcium 8.4 mg/dl (8.6-10.3)
[2023-10-14 07:16] LABS: BUN Creatinine Ratio 17.9 (10-20); Creatinine Clr Calc Pharmacy 52.2 ml/min; Est GFR (African American) 69.4 ml/min; Est GFR (Non-African American) 59.8 ml/min; Potassium 3.9 mmol/L (3.5-5.1)
[2023-10-14 07:52] LABS: Hematocrit (blood only) 33.1 % (37.0-47.0); Hemoglobin 11.2 g/dl (12.0-16.0); Mean Corpuscular Hemoglobin 30.9 pg (25.0-34.0); Mean Corpuscular Hgb Conc 33.8 g/dL (32.0-36.0); Mean Corpuscular Volume 91.4 fL (80.0-100.0); Mean Platelet Volume 10.8 fL (9.4-12.4); Platelet Count 197 K/uL (130-400); RDW Coefficient of Variation 13.2 % (11.5-14.5); Red Blood Count 3.62 M/uL (4.20-5.40); White Blood Count 17.19 K/ul (4.8-10.8)
[2023-10-14 08:00] LABS: Basophils # (auto) 0.02 K/uL (0.00-0.20); Basophils % (auto) 0.1 %; Immature Granulocytes # (auto) 0.11 K/uL (0.01-0.20); Immature Granulocytes % (auto) 0.6 %; Lymphocytes # (auto) 0.63 K/uL (1.20-3.40); Lymphocytes % (auto) 3.7 %; Monocytes # (auto) 0.55 K/uL (0.11-0.59); Monocytes % (auto) 3.2 %; Neutrophils # (auto) 15.88 K/uL (1.40-6.50); Neutrophils % (auto) 92.4 %
[2023-10-14] MEDS: HEPARIN SOD 5,000 UNIT/0.5 ML VIAL SQ SCH ×2 (08:10→21:12)
--- NOTE | 2023-10-14 08:14 | Electrocardiogram Report ---
Test Reason : Blood Pressure : / mmHG Vent. Rate : 098 BPM Atrial Rate : 098 BPM P-R Int : 186 ms QRS Dur : 082 ms QT Int : 400 ms P-R-T Axes : 043 -07 015 degrees QTc Int : 510 ms Normal sinus rhythm Diffuse Minor Nonspecific T wave abnormality Abnormal ECG When compared with ECG of 13-OCT-2023 15:11, Criteria for Inferior infarct are no longer Present QT has lengthened Confirmed by Eh Richardson ([id number]) on 10/14/2023 8:14:14 AM Referred By: REFERRED SELF Confirmed By:Eh Richardson
[2023-10-14] MEDS: ACETAMINOPHEN 325 MG TAB PO PRN (10:41)
[2023-10-14] MEDS ORDERED: cefTRIAXone SODIUM 2,000 MG in DEXTROSE 5 % MINI-B 50 ML IV SCH (14:00)
--- NOTE | 2023-10-14 17:59 | Hospitalist Progress Note ---
Date of Service October 14, 2023 Assessment & Plan (1) Emphysematous pyelitis: Plan: Infected nephrolithiasis, complicated UTI Gram-negative bacteria isolated in urine both from clean-catch from intraoperative specimen and 2 blood cultures yet to be identified CTA/P: 7 mm obstructing stone at right UPJ with right hydronephrosis and small amount of proximal right ureteral gas which may be due to prior to mentation but from which emphysematous infection is not excluded - Patient meets SIRS criteria by heart rate, respiratory rate, leukocytosis unidentified source with lactic acidosis. 2 L crystalloid ordered bolus while in the ER. Empiric antibiotics started with Rocephin, blood cultures and urine cultures final identification remains pending - Pt nontoxic appearing Day 1 close cystoscopy (2) Pulmonary nodule: Plan: Pulmonary nodules Right lower lobe pulmonary nodules with largest measuring up to 8 mm. These will require follow-up reimaging in 6 to 12 months. Refer to pulmonary nodule clinic (3) HLD (hyperlipidemia): Plan: Hyperlipidemia Continue statin (4) HTN (hypertension): Plan: Hypertension Resume lisinopril/chlorothiazide blood pressure does not require this resumption Plan DVT prophylaxis: Heparin Depression will resume Effexor CODE STATUS: Full code Admission and Anticipated Discharge Date Admission Date: October 13, 2023 Subjective Patient is in good spirits has resolution of abdominal pain and some mild dysuria persists she is still weak and tired able to eat and drink bowel movement 1 day prior but none today Physical Exam Physical Exam: Awake alert appropriate Lungs are clear bilaterally Card exam is regular Abdomen soft no CVA angle tenderness Results & Data Results & Data Vital Signs (Past 12 Hours) Vital Signs Temp Pulse Pulse Resp BP Pulse Ox O2 Del Method 10/14/23 15:41 97.9 F 64 18 110/61 94 Room Air 10/14/23 15:28 80 10/14/23 12:18 98.6 F 85 18 119/62 93 Room Air 10/14/23 10:00 69 10/14/23 08:00 98.8 F 78 18 138/76 98 Nasal Cannula O2 Flow Rate 10/14/23 15:41 10/14/23 15:28 10/14/23 12:18 10/14/23 10:00 10/14/23 08:00 2.0 Laboratory Results Reviewed CBC reviewed chemistry PG Care Time/CCT Total # of Minutes Spent Total Time Spent with Patient: Total time spent is greater than 50% in coordination of care (as documented) at patient's floor/unit and/or counseling patient: Coding Level of Care Code 32696 SUB INP/OBS CARE 235MIN Diagnoses Emphysematous pyelitis N12 Pulmonary nodule R91.1 HLD (hyperlipidemia) E78.5 HTN (hypertension) I10
[2023-10-14] MEDS: VENLAFAXINE HCL XR 75 MG CAPXR PO SCH (19:33)
[2023-10-15] MEDS: PLASMA-LYTE A 1,000 ML IV SCH (05:59)
[2023-10-15] MEDS: ACETAMINOPHEN 325 MG TAB PO PRN (06:02)
[2023-10-15 07:08] LABS: Basophils # (auto) 0.02 K/uL (0.00-0.20); Basophils % (auto) 0.2 %; Eosinophils # (auto) 0.02 K/uL (0.00-0.50); Eosinophils % (auto) 0.2 %; Hematocrit (blood only) 31.9 % (37.0-47.0); Hemoglobin 10.7 g/dl (12.0-16.0); Immature Granulocytes # (auto) 0.07 K/uL (0.01-0.20); Immature Granulocytes % (auto) 0.6 %; Lymphocytes # (auto) 1.03 K/uL (1.20-3.40); Lymphocytes % (auto) 9.5 %; Mean Corpuscular Hemoglobin 31.3 pg (25.0-34.0); Mean Corpuscular Hgb Conc 33.5 g/dL (32.0-36.0); Mean Corpuscular Volume 93.3 fL (80.0-100.0); Mean Platelet Volume 10.6 fL (9.4-12.4); Monocytes # (auto) 0.76 K/uL (0.11-0.59); Neutrophils # (auto) 8.97 K/uL (1.40-6.50); Neutrophils % (auto) 82.5 %; Platelet Count 183 K/uL (130-400); RDW Coefficient of Variation 13.4 % (11.5-14.5); RDW Standard Deviation 45.7 fL (36.4-46.3); Red Blood Count 3.42 M/uL (4.20-5.40); White Blood Count 10.87 K/ul (4.8-10.8)
[2023-10-15 07:28] LABS: BUN Creatinine Ratio 24.1 (10-20); Calcium 7.8 mg/dl (8.6-10.3); Creatinine Clr Calc Pharmacy 59.8 ml/min; Est GFR (African American) 81.7 ml/min; Est GFR (Non-African American) 70.4 ml/min; Potassium 3.3 mmol/L (3.5-5.1)
[2023-10-15] MEDS: VENLAFAXINE HCL XR 75 MG CAPXR PO SCH (08:19)
[2023-10-15] MEDS: HEPARIN SOD 5,000 UNIT/0.5 ML VIAL SQ SCH (08:19)
[2023-10-15] MEDS ORDERED: cefTRIAXone SODIUM 2,000 MG in DEXTROSE 5 % MINI-B 50 ML IV STA (09:43)
--- NOTE | 2023-10-15 10:33 | Urology Progress Note ---
Date of Service October 15, 2023 Assessment & Plan (1) Obstruction of right ureteropelvic junction due to stone: (2) Emphysematous pyelitis: Plan - POD #2 s/p cystoscopy and right ureteral stent placement with Dr. Vasquez. - Pt reports feeling much better overall and is tolerating the stent with minimal bother. - Afebrile and hemodynamically stable. - Labs reviewed- WBC 10.87, Creatinine 0.83. - UCx prelim E.coli. Blood cultures prelim gram negative bacilli. Intraop right kidney urine aspirate prelim E.coli. - Continues on Rocephin, follow cultures. - Will arrange outpatient follow-up with our service for definitive stone treatment after resolution of infection. - Expected clinical course reviewed, all questions were answered. - Urology will sign-off. Please call with any further questions or concerns. Admission and Anticipated Discharge Date Admission Date: October 13, 2023 Subjective Patient examined at bedside this AM. Awake, resting in bed on arrival. No acute distress. Feeling much better. Tolerating the stent with minimal bother. Voiding spontaneously and feels she is emptying her bladder well. Denies hematuria and dysuria. Denies f/c/n/v. Review of Systems Constitutional: as per Subjective / HPI Genitourinary: as per Subjective / HPI Physical Exam Constitutional: no acute distress Respiratory: no respiratory distress and no labored breathing Neurologic: awake Psychiatric: A+Ox3, euthymic affect Results & Data Vital Signs (Past 12 Hours) Vital Signs Temp Pulse Pulse Resp BP Pulse Ox O2 Del Method 10/15/23 07:48 36.7 C 88 18 129/64 94 Room Air 10/15/23 07:04 86 10/15/23 02:57 37.5 C 94 H 18 148/85 H 95 Room Air 10/14/23 22:31 37.4 C 87 18 153/73 H 95 Room Air PG Care Time/CCT Total # of Minutes Spent Total Time Spent with Patient: Total time spent is greater than 50% in coordination of care (as documented) at patient's floor/unit and/or counseling patient: Coding Level of Care Code 46890 SUB INP/OBS CARE 2/35MIN Diagnoses Obstruction of right ureteropelvic junction due to stone N20.1 Emphysematous pyelitis N12
--- NOTE | 2023-10-15 17:28 | Discharge Summary ---
Date of Service October 15, 2023 Admission HPI Per Admitting Provider Manjit is 73-year-old female with a past medical history of hyperlipidemia, hypertension who presents to the ER for right flank pain which began morning of admission with nausea and vomiting. No prior history of kidney stones, severe 10/10 pain on admission and no improvement with Tylenol/ibuprofen/Azo. Seen at the bedside prior to being taken to OR. She reports that she woke up this morning with flank pain on the right side 10/10, now greatly improved following initial ER treatment. She never had this pain before. No vomiting. No hematochezia or melena. She reports she has no history of heart disease, heart failure, lung disease. No history of DVT/PE or blood clots. She took her morning medications this morning.Takes effexor, hctz, lisinopril, rosuvastatin (just started for cholesterol). No history of kidney failure or kidney disease. No medication allergies. Walks and gardens regularly. No chest pain/exertional angina. No exertional dyspnea. Medical History: Reviewed Medications: Reviewed Surgical History: Reviewed Family history: Reviewed Allergies: Reviewed Social History: No tobacco or etoh Code Status: Surrogate would be son Lebron [phone]. Full code Principal Diagnosis emphysematous pyelitis secondary to obstructing ureteral stone s/p cystoscopy E coli uti sepsis resolved Discharge Data Allergies Allergy/AdvReac Type Severity Reaction Status Date / Time No Known Allergies Allergy Unverified 03/12/10 18:55 Consultations 10/13/23 17:51 ED Decision to Admit Stat Procedures Performed Operation Date: 10/13/23 18:15 Actual Procedures p Cystoscopy, Retrograde Pyelogram, Ureteral Stent Placement, Right(Right) - Emmanuel Vasquez DO Ordered Studies 10/13/23 [place] retrograde includes kub Routine 10/13/23 13:40 CT abd pelvis wo con Stat Hospital Course (1) Emphysematous pyelitis: Infected nephrolithiasis, complicated UTI Gram-negative bacteria isolated in urine both from clean-catch from intraoperative specimen and 2 blood cultures yet to be identified CTA/P: 7 mm obstructing stone at right UPJ with right hydronephrosis and small amount of proximal right ureteral gas which may be due to prior to mentation but from which emphysematous infection is not excluded -sepsis Patient meets SIRS criteria by heart rate, respiratory rate, leukocytosis unidentified source with lactic acidosis. 2 L crystalloid ordered bolus while in the ER. Empiric antibiotics started with Rocephin, discharged on Cipro due to gram negative bacteremia (2) Pulmonary nodule: Pulmonary nodules Right lower lobe pulmonary nodules with largest measuring up to 8 mm. These will require follow-up reimaging in 6 to 12 months. (3) HLD (hyperlipidemia): Hyperlipidemia Continue statin (4) HTN (hypertension): Hypertension Resume lisinopril/chlorothiazide blood pressure does not require this resumption Plan Depression will resume Effexor CODE STATUS: Full code Total Time Total Time Spent Total Time Spent (In Minutes): It required greater than 30 minutes to prepare this patient for discharge. Discharge Plan Discharge Items Patient Disposition: Home - Self-Care Reason For Visit: UTI, OBSTRUCTING STONE Discharge Diagnosis: urinary tract infection associated with obstructing stone cystoscopy and ureteral stent placement Condition on Discharge: Good Activity: Resume your previous activity Non-emergency contact: Primary Care Provider and Urologist Call non-emergency contact if: your symptoms worsen Follow-up/Referrals: Emmanuel Vasquez DO [Physician] - (Dr. Gallego' drum worker will contact you directly to schedule your follow up.) Roberto Alvarado MD [Primary Care Provider] - 10/23/23 11:05 am (You will be seeing Dr. Russell.) Diet: Regular Addtl Attending Provider Instructions: Your Recovery A ureteral (say "[id number]") stent is a thin, hollow tube that is placed in the ureter to help urine pass from the kidney into the bladder. Ureters are the tubes that connect the kidneys to the bladder. You may have a small amount of blood in your urine for 1 to 3 days after the procedure. While the stent is in place, you may have to urinate more often, feel a sudden need to urinate, or feel like you can't completely empty your bladder. You may feel some pain when you urinate or do strenuous activity. You also may notice a small amount of blood in your urine after strenuous activities. These side effects usually don't prevent people from doing their normal daily activities. You may have a thin string coming out of your urethra. Your urethra is the tube that carries urine from your bladder to outside your body. This string is attached to the stent. Try not to pull on the string. It will be used to pull out the stent when you no longer need it. After the procedure, urine may flow better from your kidneys to your bladder. A ureteral stent may be left in place for several days or for as long as several months. Your doctor will take it out when you no longer need it. Or, in some cases, it may be taken out at home. This care sheet gives you a general idea about how long it will take for you to recover. But each person recovers at a different pace. Follow the steps below to get better as quickly as possible. How can you care for yourself at home? Activity * Rest when you feel tired. Getting enough sleep will help you recover. * Avoid strenuous activities, such as bicycle riding, jogging, weight lifting, or aerobic exercise, until your doctor says it is okay. * Ask your doctor when you can drive again. * Most people are able to return to work the day after the procedure. If your work requires intense activity, you may feel pain in your kidney area or get tired easily. If this happens, you may need to do less strenuous activities while the stent is in. * Ask your doctor when it is okay for you to have sex. Diet * You can eat your normal diet. If your stomach is upset, try bland, low-fat foods like plain rice, broiled chicken, toast, and yogurt. * Drink plenty of fluids (unless your doctor tells you not to). Medicines * Your doctor will tell you if and when you can restart your medicines. You will also get instructions about taking any new medicines. * If you stopped taking aspirin or some other blood thinner, your doctor will tell you when to start taking it again. * Be safe with medicines. Take pain medicines exactly as directed. * If the doctor gave you a prescription medicine for pain, take it as prescribed. * If you are not taking a prescription pain medicine, ask your doctor if you can take an [id number] medicine. * If you think your pain medicine is making you sick to your stomach: * Take your medicine after meals (unless your doctor has told you not to). * Ask your doctor for a different pain medicine. * If your doctor prescribed antibiotics, take them as directed. Do not stop taking them just because you feel better. You need to take the full course of antibiotics. Follow-up care is a zuniga part of your treatment and safety.Be sure to make and go to all appointments, and call your doctor if you are having problems. It's also a good idea to know your test results and keep a list of the medicines you take. When should you call for help? [id number] you think you may need emergency care. For example, call if: * You passed out (lost consciousness). * You have severe trouble breathing. * You have sudden chest pain and shortness of breath, or you cough up blood. * You have severe belly pain. Call your doctor nowor seek immediate medical care if: * Part or all of the stent comes out of your urethra. * You have pain that does not get better after you take pain medicine. * You have symptoms of a urinary infection. For example: * You have blood or pus in your urine. * You have pain in your back just below your rib cage. This is called flank pain. * You have a fever, chills, or body aches. * It hurts to urinate. * You have groin or belly pain. * You cannot control when you urinate, or you leak urine. Watch closely for changes in your health, and be sure to contact your doctor if you have any problems. 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 Please call the office at [phone] with any questions, concerns or need to reschedule appointments for any reason. We are happy to assist you. Pending Studies at Discharge: No Stand-Alone Forms: [facility], Smoking Cessation Medications and DC Order Prescriptions: New ciprofloxacin HCl [Cipro] 500 mg tablet 500 mg PO BID Qty: 20 0RF Continued venlafaxine 75 mg capsule,extended release 24hr 75 mg PO DAILY lisinopril 40 mg tablet 40 mg PO DAILY rosuvastatin 20 mg tablet 20 mg PO DAILY Held hydrochlorothiazide 12.5 mg capsule 12.5 mg PO DAILY Hold Instructions: Resume on 10/22/23. Discharge Orders: Discharge Order (Routine); Ordered 01/10/24 Ordered By: Estuardo Lomax Admission Data Admit Date/Time: 10/13/23 18:19 Attending Provider: Estuardo Lomax Admit Provider: Ozzie Dupree Primary Care Provider: Roberto Alvarado Other Providers: Ozzie Dupree Other Interventions: Discharge Summary Assessment (RN) Last Done: 10/15/23 11:30 Coding Level of Care Code 50007 INP/OBS DISCH >30 MIN Diagnoses Emphysematous pyelitis N12 Pulmonary nodule R91.1 HLD (hyperlipidemia) E78.5 HTN (hypertension) I10
== END 2023-10-15 12:23 | disposition home or self-care (01) | DRG 854 ==
LOC: ED 12:49 → OR 18:00 → 2E 18:00 → SUATTDRO 18:19 → 2E 18:19